=== PATIENT | male | born 1990 | race Caucasian/White ===

== ENCOUNTER 2016-12-31 19:46 | Emergency (ER) | payer MEDICAID ==
[~2016-12-31] VITALS: Ht 180.3 cm; Wt 77.1 kg
[2016-12-31 21:42] VITALS: BP 130/72
== END 2016-12-31 22:33 | disposition home or self-care (01) ==
LOC: ER 19:46
DX: J02.9 Acute pharyngitis, unspecified (principal); R09.81 Nasal congestion
CPT/HCPCS: 71010

== ENCOUNTER → 2020-03-09 | Emergency (ER) | payer MEDICAID, OTHER ==
[~2020-03-09] VITALS: Ht 180.3 cm; Wt 81.6 kg
[~2020-03-09] MED LIST: AMOXICILLIN TRIHYDRATE 250 MG CAP PO ONE; SODIUM CHLORIDE 0.9% 1,000 ML IV ONE; hydrOXYzine 25 MG TAB or CAP PO ONE
[2020-03-09 21:22] LABS: Urine Bacteria NONE SEEN /hpf (None Seen); Urine Blood Negative /uL (Negative); Urine Mucus FEW (None Seen); Urine Specific Gravity 1.036 (1.001-1.035); Urine WBC 1 /hpf (0 - 3)
[2020-03-09 21:37] LABS: Basophils # (auto) 0.1 10 ^3/uL (0-0.2); Basophils % (auto) 0.8 % (0.0-2.0); Eosinophils # (auto) 0.1 10 ^3/uL (0-0.8); Eosinophils % (auto) 1.5 % (0.0-7.0); Hematocrit 46.9 % (41.0-53.0); Hemoglobin 16.3 g/dL (13.5-17.5); Lymphocytes # (auto) 1.3 10 ^3/uL (0.4-5.4); Lymphocytes % (auto) 19.3 % (10.0-50.0); Mean Corpuscular Hemoglobin 28.5 pg (28.0-32.0); Mean Corpuscular Hgb Conc. 34.7 g/dL (32.0-36.0); Mean Corpuscular Volume 81.9 fL (80.0-100.0); Monocytes # (auto) 0.7 10 ^3/uL (0-1.3); Monocytes % (auto) 9.7 % (0.0-12.0); Neutrophils # (auto) 4.7 10 ^3/uL (1.6-8.6); Neutrophils % (auto) 68.7 % (37.0-80.0); Nucleated Red Blood Cells % 0.1 %; Platelet Count (auto) 324 10^3/uL (140-450); Red Blood Cells 5.72 10^6/uL (4.5-5.90); Red Cell Distribution Width 14.8 % (11.8-14.3); White Blood Cell 6.9 10^3/uL (4.4-10.8)
[2020-03-09 21:37] LABS: Amphetamine Screen, Urine NEGATIVE (NEGATIVE); Barbiturate Scree,Urine NEGATIVE (NEGATIVE); Benzodiazephine Screen, Urine NEGATIVE (NEGATIVE); Cannabinoid Screen, Urine POSITIVE (NEGATIVE); Cocaine Screen, Urine NEGATIVE (NEGATIVE); Phencyclidine Screen, Urine NEGATIVE (NEGATIVE)
[2020-03-09 21:45] LABS: Opiate Scree,Urine NEGATIVE (NEGATIVE)
[2020-03-09 21:46] LABS: INR 1.04 (0.9-1.15); Partial Thromboplastin Time 28.5 sec (23.64-32.05)
[2020-03-09 21:51] LABS: Albumin 4.2 g/dL (3.4-5.0); Anion Gap 8 (5-15); Blood Urea Nitrogen 14 mg/dL (7-18); Calcium 8.4 mg/dL (8.5-10.1); Carbon Dioxide 23 mmol/L (21-32); Chloride 107 mmol/L (98-107); Glucose 101 mg/dL (74-106); Potassium 4.1 mmol/L (3.5-5.1); Sodium 138 mmol/L (136-145)
[2020-03-09 21:56] LABS: Alanine Aminotransferase 23 U/L (16-61); Alkaline Phosphatase 81 U/L (45-117); Aspartate Aminotransferase 14 U/L (15-37); BUN/Creatinine Ratio 13.6; Bilirubin, Total 0.5 mg/dL (0.2-1.0); GFR African American 110 mL/min; GFR Non-African American 91 mL/min; Total Protein 7.8 g/dL (6.4-8.2)
[2020-03-09 23:44] VITALS: BP 120/66
== END | disposition home or self-care (01) ==
LOC: ER 20:30
DX: F41.0 Panic disorder [episodic paroxysmal anxiety] (principal); H66.91 Otitis media, unspecified, right ear; F12.10 Cannabis abuse, uncomplicated; R42 Dizziness and giddiness
CPT/HCPCS: 36415; 71045; 80053; 80307; 81001; 83605; 83880; 84484; 85025; 85610; 85730; 93005; 96360; 99285; J7030

== ENCOUNTER 2020-11-10 00:50 | Emergency (ER) | payer MEDICAID, OTHER ==
[~2020-11-10] VITALS: Ht 180.3 cm; Wt 88.5 kg
[2020-11-10 02:09] LABS: Basophils # (auto) 0 10 ^3/uL (0-0.2); Basophils % (auto) 0.6 % (0.0-2.0); Eosinophils # (auto) 0.1 10 ^3/uL (0-0.8); Eosinophils % (auto) 1.1 % (0.0-7.0); Hematocrit 41.2 % (41.0-53.0); Hemoglobin 14.1 g/dL (13.5-17.5); Lymphocytes # (auto) 1.8 10 ^3/uL (0.4-5.4); Lymphocytes % (auto) 31.5 % (10.0-50.0); Mean Corpuscular Hemoglobin 27.7 pg (28.0-32.0); Mean Corpuscular Hgb Conc. 34.3 g/dL (32.0-36.0); Mean Corpuscular Volume 80.8 fL (80.0-100.0); Monocytes # (auto) 0.4 10 ^3/uL (0-1.3); Monocytes % (auto) 7.1 % (0.0-12.0); Neutrophils # (auto) 3.4 10 ^3/uL (1.6-8.6); Neutrophils % (auto) 59.7 % (37.0-80.0); Platelet Count (auto) 376 10^3/uL (140-450); Red Cell Distribution Width 14.5 % (11.8-14.3); White Blood Cell 5.7 10^3/uL (4.4-10.8)
[2020-11-10 02:29] LABS: Albumin 4.5 g/dL (3.4-5.0); BUN/Creatinine Ratio 9.9; Calcium 8.6 mg/dL (8.5-10.1); Potassium 3.7 mmol/L (3.5-5.1)
[2020-11-10 02:32] LABS: Bilirubin, Total 0.4 mg/dL (0.2-1.0); Total Protein 7.7 g/dL (6.4-8.2)
[2020-11-10 02:40] LABS: Urine Bacteria NONE SEEN /hpf (None Seen); Urine Blood Negative /uL (Negative); Urine Specific Gravity 1.002 (1.001-1.035); Urine WBC <1 /hpf (0 - 3)
[2020-11-10 02:51] LABS: Amphetamine Screen, Urine NEGATIVE (NEGATIVE); Barbiturate Scree,Urine NEGATIVE (NEGATIVE); Benzodiazephine Screen, Urine NEGATIVE (NEGATIVE); Cannabinoid Screen, Urine NEGATIVE (NEGATIVE); Cocaine Screen, Urine NEGATIVE (NEGATIVE); Opiate Scree,Urine NEGATIVE (NEGATIVE); Phencyclidine Screen, Urine NEGATIVE (NEGATIVE)
[2020-11-10] MEDS ORDERED: TETANUS-DIPTH-ACEL PERTUSSIS 0.5ML SYR Tdap IM ONE (03:15)
[2020-11-10 05:10] VITALS: BP 105/56
== END 2020-11-10 06:17 | disposition home or self-care (01) ==
LOC: EDBD 00:50 → ER 00:56
DX: S01.01XA Laceration without foreign body of scalp, initial encounter (principal); J45.909 Unspecified asthma, uncomplicated; F17.210 Nicotine dependence, cigarettes, uncomplicated; F10.129 Alcohol abuse with intoxication, unspecified; Y90.8 Blood alcohol level of 240 mg/100 ml or more; X58.XXXA Exposure to other specified factors, initial encounter; Y93.89 Activity, other specified; Y92.89 Other specified places as the place of occurrence of the external cause; Y99.8 Other external cause status
CPT/HCPCS: 36415; 70450; 71045; 72125; 80053; 80307; 80320; 81001; 85025; 90471; 90715

== ENCOUNTER 2022-01-14 16:06 | Emergency (ER) | payer MEDICAID, OTHER ==
[~2022-01-14] VITALS: Ht 180.3 cm; Wt 99.8 kg
[2022-01-14] MEDS ORDERED: TRAM-297 PO (18:06)
[2022-01-14] MEDS ORDERED: traMADol HCL 50 MG TAB PO ONE (18:15)
[2022-01-14 19:42] VITALS: BP 145/81
== END 2022-01-14 19:47 | disposition home or self-care (01) ==
LOC: ER 16:06
DX: M25.551 Pain in right hip (principal); F17.210 Nicotine dependence, cigarettes, uncomplicated; J45.909 Unspecified asthma, uncomplicated; Z90.49 Acquired absence of other specified parts of digestive tract; Z79.899 Other long term (current) drug therapy; Z47.32 Aftercare following explantation of hip joint prosthesis
CPT/HCPCS: 72192; 93971

== ENCOUNTER 2022-03-15 03:17 | Emergency (ER) | payer MEDICAID ==
[~2022-03-15] VITALS: Ht 182.9 cm; Wt 95.3 kg
[~2022-03-15 03:17] MED LIST changes: -AMOXICILLIN TRIHYDRATE 250 MG CAP PO ONE; -SODIUM CHLORIDE 0.9% 1,000 ML IV ONE; +TRAM-297 PO; -hydrOXYzine 25 MG TAB or CAP PO ONE
[2022-03-15 03:18] VITALS: BP 137/81
[2022-03-15] MEDS ORDERED: BACL10TA PO (07:24)
[2022-03-15] MEDS ORDERED: IBUP800T27 PO (07:24)
== END 2022-03-15 07:26 | disposition home or self-care (01) ==
LOC: ER 03:17
DX: G89.29 Other chronic pain (principal); M25.551 Pain in right hip; J45.909 Unspecified asthma, uncomplicated; F17.210 Nicotine dependence, cigarettes, uncomplicated; Z90.49 Acquired absence of other specified parts of digestive tract; Z79.1 Long term (current) use of non-steroidal anti-inflammatories (NSAID); Z79.899 Other long term (current) drug therapy
CPT/HCPCS: 73502

== ENCOUNTER 2022-08-25 21:05 | Emergency (ER) | payer MEDICAID ==
[~2022-08-25] VITALS: Ht 180.3 cm; Wt 99.3 kg
[~2022-08-25 21:05] MED LIST changes: +BACL10TA PO; +IBUP800T27 PO
[2022-08-25 22:12] LABS: Urine Bacteria NONE SEEN /hpf (None Seen); Urine Blood Negative /uL (Negative); Urine Specific Gravity 1.001 (1.001-1.035); Urine WBC <1 /hpf (0 - 3)
[2022-08-25 22:25] LABS: Basophils # (auto) 0.1 10 ^3/uL (0-0.2); Basophils % (auto) 0.8 % (0.0-2.0); Eosinophils # (auto) 0.2 10 ^3/uL (0-0.8); Eosinophils % (auto) 2.4 % (0.0-7.0); Hematocrit 48.5 % (41.0-53.0); Hemoglobin 16.6 g/dL (13.5-17.5); Lymphocytes # (auto) 2.2 10 ^3/uL (0.4-5.4); Lymphocytes % (auto) 30.5 % (10.0-50.0); Mean Corpuscular Hemoglobin 28.6 pg (28.0-32.0); Mean Corpuscular Hgb Conc. 34.3 g/dL (32.0-36.0); Mean Corpuscular Volume 83.5 fL (80.0-100.0); Monocytes # (auto) 0.5 10 ^3/uL (0-1.3); Monocytes % (auto) 6.6 % (0.0-12.0); Neutrophils # (auto) 4.4 10 ^3/uL (1.6-8.6); Neutrophils % (auto) 59.7 % (37.0-80.0); Nucleated Red Blood Cells % 0.2 %; Red Blood Cells 5.81 10^6/uL (4.5-5.90); Red Cell Distribution Width 14.3 % (11.8-14.3); White Blood Cell 7.3 10^3/uL (4.4-10.8)
[2022-08-25 22:47] LABS: Albumin 4.6 g/dL (3.4-5.0); BUN/Creatinine Ratio 11.4; Calcium 8.7 mg/dL (8.5-10.1); Potassium 3.6 mmol/L (3.5-5.1)
[2022-08-25 22:51] LABS: Bilirubin, Total 0.3 mg/dL (0.2-1.0); Total Protein 8.9 g/dL (6.4-8.2)
[2022-08-26] MEDS ORDERED: KETOROLAC TROMETH 60MG/2ML VIAL IM ONE (08:45)
[2022-08-26] MEDS ORDERED: IBUPROFEN 800 MG TAB PO ONE (10:00)
[2022-08-26 10:13] VITALS: BP 135/82
[2022-08-26] MEDS ORDERED: OMEP-263 PO (10:30)
[2022-08-26] MEDS ORDERED: METO-281 PO (10:30)
== END 2022-08-26 10:22 | disposition home or self-care (01) ==
LOC: ER 21:08
DX: R10.11 Right upper quadrant pain (principal); J45.909 Unspecified asthma, uncomplicated; F17.210 Nicotine dependence, cigarettes, uncomplicated
CPT/HCPCS: 36415; 76705; 80053; 81001; 83690; 85025

== ENCOUNTER 2023-07-02 20:27 | Emergency (ER) | payer MEDICAID ==
[~2023-07-02] VITALS: Ht 182.9 cm; Wt 90.9 kg
[~2023-07-02 20:27] MED LIST changes: +IBUP-1456 PO; -IBUP800T27 PO; +METO-281 PO; +OMEP-448 PO
[2023-07-03] MEDS ORDERED: KETOROLAC TROMETH 60MG/2ML VIAL IM ONE (01:00)
[2023-07-03] MEDS ORDERED: ACE3T PO (01:58)
[2023-07-03 02:00] VITALS: BP 132/74; PULSE 86; RESP 18; TEMP 98.4; O2SAT 97
== END 2023-07-03 02:13 | disposition home or self-care (01) ==
LOC: ER 20:27
DX: S82.892A Other fracture of left lower leg, initial encounter for closed fracture (principal); S93.602A Unspecified sprain of left foot, initial encounter; J45.909 Unspecified asthma, uncomplicated; F17.210 Nicotine dependence, cigarettes, uncomplicated; Z90.49 Acquired absence of other specified parts of digestive tract; Z79.1 Long term (current) use of non-steroidal anti-inflammatories (NSAID); Z79.899 Other long term (current) drug therapy; W01.0XXA Fall on same level from slipping, tripping and stumbling without subsequent striking against object, initial encounter; Y93.89 Activity, other specified; Y92.89 Other specified places as the place of occurrence of the external cause; Y99.8 Other external cause status
CPT/HCPCS: 29515; 73610; 73630; 96372; 99284; J1885